=== PATIENT | male | born 1985 | race American Indian/Alaskan Native ===

== ENCOUNTER 2019-11-25 17:55 | Emergency (ER) | payer MEDICAID ==
[2019-11-25 19:32] VITALS: BP 137/84
--- NOTE | 2019-11-25 19:36 | Emergency Department Report ---
ED General Adult HPI - General Chief complaint: Eye Problems Stated complaint: EYES SWELLING W/ITCHING Time Seen by Provider: 11/25/19 19:30 Source: patient Mode of arrival: Ambulatory Limitations: No Limitations - History of Present Illness Initial comments: Pt complains of bilateral eye swelling and itching x today. He states his symptoms began after cutting grass. he denies any eye pain, fever, vision changes, headache, SOB, dysphagia, or rash. He states the swelling seems to improve with warm compresses. He admits to allergies to pollen. He is unsure of allergies to grass -: Sudden - Related Data Previous Rx's Medication Instructions Recorded Last Taken Type Ciprofloxacin HCl [Cipro] 500 mg PO Q12H #28 tab 03/04/15 Unknown Rx Ibuprofen [Motrin 600 MG tab] 600 mg PO Q8H PRN #30 tablet 03/04/15 Unknown Rx traMADoL [Ultram] 50 mg PO Q6HR PRN #12 tablet 03/04/15 Unknown Rx Cetirizine HCl [Zyrtec 10mg tab] 10 mg PO QHS #10 tablet 11/25/19 Unknown Rx Prednisone [predniSONE 10 mg 10 mg PO .TAPER #1 tab.ds.pk 11/25/19 Unknown Rx (6-Day Pack, 21 Tabs)] Allergies Allergy/AdvReac Type Severity Reaction Status Date / Time No Known Allergies Allergy Verified 07/04/14 19:16 ED Review of Systems ROS: Stated complaint: EYES SWELLING W/ITCHING Other details as noted in HPI Constitutional: denies: chills, fever Eyes: denies: eye pain, eye discharge, vision change ENT: denies: throat pain Respiratory: denies: cough, shortness of breath Skin: denies: rash, lesions ED Past Medical Hx - Past Medical History Previous Medical History?: No - Surgical History Past Surgical History?: No - Social History Smoking Status: Current Every Day Smoker Substance Use Type: None - Medications Home Medications: Home Medications Medication Instructions Recorded Confirmed Last Taken Type Ciprofloxacin HCl [Cipro] 500 mg PO Q12H #28 tab 03/04/15 Unknown Rx Ibuprofen [Motrin 600 MG tab] 600 mg PO Q8H PRN #30 tablet 03/04/15 Unknown Rx traMADoL [Ultram] 50 mg PO Q6HR PRN #12 tablet 03/04/15 Unknown Rx Cetirizine HCl [Zyrtec 10mg tab] 10 mg PO QHS #10 tablet 11/25/19 Unknown Rx Prednisone [predniSONE 10 mg 10 mg PO .TAPER #1 tab.ds.pk 11/25/19 Unknown Rx (6-Day Pack, 21 Tabs)] ED Physical Exam - General Limitations: No Limitations General appearance: alert, in no apparent distress - Head Head exam: Present: atraumatic, normocephalic - Eye Eye exam: Present: PERRL, EOMI (pt denies shine nwith EOMs), periorbital swelling (soft swelling noted bilaterally to upper eyelids without erythema or tenderness to palpation ). Absent: scleral icterus, conjunctival injection - ENT ENT exam: Present: normal orophraynx, mucous membranes moist - Cardiovascular Cardiovascular Exam: Present: regular rate, normal rhythm - Back Exam Back exam: Present: normal inspection - Neurological Exam Neurological exam: Present: alert, oriented X3 - Psychiatric Psychiatric exam: Present: normal affect - Skin Skin exam: Present: warm, dry, intact, normal color. Absent: rash, cyanosis, petechiae, ecchymosis ED Medical Decision Making - Medical Decision Making Pt here with swelling and itching to upper eyelids bilaterally. Symptoms began after cutting grass. He denies any pain. No swelling of lips or remainder on the face noted on exam. Swelling is likely due to an allergic reaction to the grass. Pt is well appearing and in no acute distress. He is stable for d/c. Rx for cetirizine and prednisone given. Pt instructed to return to the ED if new or worsening symptoms. Critical care attestation.: If time is entered above; I have spent that time in minutes in the direct care of this critically ill patient, excluding procedure time. ED Disposition Clinical Impression: Edema of eyelid of both eyes Allergic reaction Qualifiers: Encounter type: initial encounter Qualified Code(s): T78.40XA - Allergy, unspecified, initial encounter Disposition: TO HOME OR SELFCARE Is pt being admited?: No Condition: Stable Instructions: Allergies (ED), Angioedema (ED) Prescriptions: Cetirizine HCl [Zyrtec 10mg tab] 10 mg PO QHS #10 tablet Prednisone [predniSONE 10 mg (6-Day Pack, 21 Tabs)] 10 mg PO .TAPER #1 tab.ds.pk Referrals: BRANDON NAZARIO MD [Staff Physician] - 3-5 Days
[2019-11-25] MEDS ORDERED: DEXAMETHASONE 4 MG TAB PO ONE (19:54)
== END 2019-11-25 20:16 | disposition home or self-care (01) ==
LOC: ED 17:55
DX: T78.40XA Allergy, unspecified, initial encounter (principal); H02.844 Edema of left upper eyelid; H02.841 Edema of right upper eyelid; X58.XXXA Exposure to other specified factors, initial encounter
CPT/HCPCS: 99282; J8540

== ENCOUNTER 2022-04-11 00:42 | Emergency (ER) | payer MEDICAID ==
[2022-04-11] MEDS ORDERED: dexAMETHasone 20 MG/5 ML VIAL IM ONE (11:32)
--- NOTE | 2022-04-11 11:37 | Emergency Department Report ---
ED Rash HPI - HPI Chief Complaint: Allergic Reaction Stated Complaint: ALLERGIC RX; RASH Duration: 5 Days Location: Upper Extremities, Other (face) Rash Symptoms: Yes Itching, No Facial Swelling, No Tongue/Oral Swelling, No Breathing Difficulties, No Choking Sensation, No Wheezing/Dyspnea, No Peeling, No Blistering, No Fever, No Lightheaded, No Malaise, No Myalgias Severity: mild Other History: 37-year-old male presents to the ED complaining rash to the bilateral and face x5 days. He states that he was outdoors in the yard when he noticed that he erupted into what looked like to be hives . Patient stated that over the last 5 days he has had intense pruritus. Patient denies any difficulty breathing fever chills or nausea or vomiting. Patient is unsure if he came in contact with poison shana. Denies taking any qxog-lql-eunanck medication. ED Review of Systems ROS: Stated complaint: ALLERGIC RX; RASH Other details as noted in HPI Constitutional: denies: chills, fever Eyes: denies: eye pain, eye discharge, vision change ENT: denies: ear pain, throat pain Respiratory: denies: cough, shortness of breath, wheezing Cardiovascular: denies: chest pain, palpitations Endocrine: no symptoms reported Gastrointestinal: denies: abdominal pain, nausea, diarrhea Genitourinary: denies: urgency, dysuria Musculoskeletal: denies: back pain, joint swelling, arthralgia Skin: rash. denies: lesions Neurological: denies: headache, weakness, paresthesias Psychiatric: denies: anxiety, depression Hematological/Lymphatic: denies: easy bleeding, easy bruising ED Past Medical Hx - Past Medical History Previous Medical History?: No - Surgical History Past Surgical History?: No - Social History Smoking Status: Current Every Day Smoker Substance Use Type: None - Medications Home Medications: Home Medications Medication Instructions Recorded Confirmed Last Taken Type Ciprofloxacin HCl [Cipro] 500 mg PO Q12H #28 tab 03/04/15 Unknown Rx Ibuprofen [Motrin 600 MG tab] 600 mg PO Q8H PRN #30 tablet 03/04/15 Unknown Rx traMADoL [Ultram] 50 mg PO Q6HR PRN #12 tablet 03/04/15 Unknown Rx Cetirizine HCl [Zyrtec 10mg tab] 10 mg PO QHS #10 tablet 11/25/19 Unknown Rx Pramoxine HCl/Calamine [Calamine 1 applic TP DAILY #1 lotion 04/17/20 Unknown Rx Medicated Lotion] Prednisone [predniSONE 10 mg 10 mg PO .TAPER #1 tab.ds.pk 04/17/20 Unknown Rx (6-Day Pack, 21 Tabs)] cephALEXin [Keflex] 500 mg PO Q8HR #21 cap 04/17/20 Unknown Rx hydrOXYzine HCL [Atarax] 25 mg PO QHS PRN #15 tablet 04/17/20 Unknown Rx hydrOXYzine HCL [Atarax] 25 mg PO Q6HR PRN 15 Days #30 04/11/22 Unknown Rx tablet predniSONE [Deltasone] 50 mg PO QDAY 5 Days #5 tab 04/11/22 Unknown Rx Rash Exam - Exam General: Vital signs noted. No distress. Alert and acting appropriately. HEENT: No Periorbital Edema, No Conjuctival Injection, No Chemosis, No Perioral Edema, No Tongue Edema, No Uvular Edema, No Compromised Airway, No Drooling Lungs: Yes Good Air Exchange (Normal Breath Sounds), No Wheezes, No Ronchi, No Stridor, No Cough, No Labored Respirations, No Retractions, No Use of Accessory Muscles, No Other Abnormal Lung Sounds Heart: Yes Regular, No Murmur Skin: Yes Urticarial Rash, No Maculopapular Rash, No Morbilliform rash, No Bulla(e), No Excoriations, No Weeping, No Tenderness, No Erythema, No Edema, No Encrustations, No Other Other: Positive: Abdomen Normal, Neurologic Normal, Musculoskeletal Normal ED Course Vital Signs 04/11/22 01:14 Temperature 98.5 F Pulse Rate 83 Respiratory 16 Rate Blood Pressure 111/74 O2 Sat by Pulse 100 Oximetry ED Medical Decision Making - Medical Decision Making 37-year-old male presents to the ED complaining rash to the bilateral and face x5 days. He states that he was outdoors in the yard when he noticed that he erupted into what looked like to be hives . Patient stated that over the last 5 days he has had intense pruritus. Patient denies any difficulty breathing fever chills or nausea or vomiting. Patient is unsure if he came in contact with poison shana. Denies taking any [id number]-vqa-oandoip medication. Examination patient has multiple papular vesicle rash noted on bilateral arms and face. Rechecked the patient is resting quietly quietly and comfortable and feeling better. I discussed the results of diagnostic study, my clinical impression and the plan for further treatment with the patient. Patient agrees with plan and discharge at this present time. All question addressed. I have given the patient instruction regarding a diagnosis ,expectation ,follow- up and return precaution. I explained to the patient that emergent condition may arise and to return to the ED for new worsen and any new persisting condition. I have explained the importance of following up with the primary care physician or referral physician listed below has instructed. The patient verbalized understanding of discharge instruction. Critical care attestation.: If time is entered above; I have spent that time in minutes in the direct care of this critically ill patient, excluding procedure time. ED Disposition Clinical Impression: Poison shana Disposition: 01 HOME / SELF CARE / HOMELESS Is pt being admited?: No Does the pt Need Aspirin: No Condition: Stable Instructions: Poison Shana Dermatitis, [id number] Additional Instructions: Take medication as prescribed Return to the ED for any worsening symptom Prescriptions: hydrOXYzine HCL [Atarax] 25 mg PO Q6HR PRN 15 Days #30 tablet PRN Reason: Itching predniSONE [Deltasone] 50 mg PO QDAY 5 Days #5 tab Referrals: [facility] [Provider Group] - 3-5 Days Forms: Work/School Release Form(ED) Time of Disposition: 11:42
[2022-04-11 12:05] VITALS: BP 115/75
== END 2022-04-11 12:03 | disposition home or self-care (01) ==
LOC: ED 00:42
DX: L23.7 Allergic contact dermatitis due to plants, except food (principal); F17.290 Nicotine dependence, other tobacco product, uncomplicated
CPT/HCPCS: 96372; 99282; J1100